=== PATIENT | male | born 1950 | race Caucasian/White ===

== ENCOUNTER → 2023-02-22 08:30 | Outpatient (BNVA) | payer MEDICARE, SELFPAY | PROVIDERS: Visit Provider Family Medicine | DX: M19.90 Unspecified osteoarthritis, unspecified site (principal) | CPT/HCPCS: 73130; 80053; 85651; 86140; 86200; 86431 ==

== ENCOUNTER → 2023-02-22 10:14 | Outpatient (BNVA) | payer MEDICARE, SELFPAY | PROVIDERS: Visit Provider Family Medicine | DX: M19.90 Unspecified osteoarthritis, unspecified site (principal) | CPT/HCPCS: 73130 ==

== ENCOUNTER 2023-03-07 07:14 | Outpatient (CLI) | payer MEDICARE, SELFPAY ==
--- NOTE | 2023-03-07 07:15 | USCV_ITS ---
Jerord Valentine Age: 73 Gender: M : 1950 Exam Date: 03/07/2023 07:35 Ordering Phys: Taras Cohen MD Technologist: Exam Location: [facility] [place]_ Indication: lt leg swelling PROCEDURES: The venous duplex Doppler examination of both lower extremities was performed in the standard fashion. The following venous structures were evaluated: common femoral vein, profunda vein, proximal portion of the greater saphenous vein, superficial femoral vein, and the popliteal vein. In addition, the posterior tibial and peroneal trunk were evaluated. FINDINGS: Normal 2-D Doppler and augmentation and compressibility throughout the lower extremity venous structures. Additional imaging through the proximal calf veins also reveals no thrombus. Limited evaluation of the greater saphenous vein is patent with no thrombus. CONCLUSIONS No DVT bilateral lower extremities. Dr. Mikki Garrido DO (Electronically Signed) Final Date: 07 March 2023 08:31 S
== END 2023-03-07 07:15 | disposition home or self-care (01) ==
PROVIDERS: PCP Family Medicine; Visit Provider Family Medicine
DX: R60.0 Localized edema (principal)
CPT/HCPCS: 80053; 85651; 86140; 86200; 86431; 93970

== ENCOUNTER → 2023-05-30 10:10 | Outpatient (BNVA) | payer MEDICARE, SELFPAY | PROVIDERS: PCP Family Medicine; Visit Provider Family Medicine | DX: R60.0 Localized edema (principal) | CPT/HCPCS: 80053 ==

== ENCOUNTER 2023-06-12 07:43 | Outpatient (CLI) | payer MEDICARE, SELFPAY ==
--- NOTE | 2023-06-12 08:00 | USCV_ITS ---
Jerrod Valentine Age: 73 Gender: M : 1950 Exam Date: 06/12/2023 08:02 Ordering Phys: Technologist: Exam Location[place] [facility] [place] Indication: pedal edema afib BP: 130 / 74 HR: Rhythm: Sinus Technical Quality: Adequate MEASUREMENTS (Male / Female) Normal Values 2D ECHO LV Diastolic Diameter PLAX 4.5 cm 4.2 - 5.9 / 3.9 - 5.3 cm LV Systolic Diameter PLAX 3.3 cm IVS Diastolic Thickness 1.2 cm 0.6 - 1.0 / 0.6 - 0.9 cm IVS Systolic Thickness 2.0 cm LVPW Diastolic Thickness 1.3 cm 0.6 - 1.0 / 0.6 - 0.9 cm LVPW Systolic Thickness 1.7 cm LVOT Diameter 2.0 cm LV Ejection Fraction 2D Teich 51.9 % LV Ejection Fraction MOD 2C 69.0 % LV Ejection Fraction 2C AL 69.7 % LA Diameter 4.5 cm IVC Diameter 2.6 cm M-MODE Aortic Annulus Diameter 4.0 cm LA Ao Ratio MM 1.1 MV E Point Septal Separation 0.6 cm DOPPLER LVOT Peak Velocity 86.0 cm/s MV Area PHT 5.0 cm squared Mitral E to A Ratio 2.8 MV E' Velocity 139.0 cm/s TR Peak Velocity 312.7 cm/s TR Peak Gradient 39.1 mmHg RV Acceleration Time 0.1 s FINDINGS Left Ventricle Normal left ventricular cavity size. Mild left ventricular hypertrophy. Normal left ventricular systolic function. Left ventricular ejection fraction is estimated at 62 %. Grade II diastolic dysfunction. Right Ventricle Mildly dilated RV with good RV systolic function. Right Atrium Dilated right atrium. Left Atrium Mildly increased left atrial size. Mitral Valve Mildly thickened mitral valve. Mild mitral annular calcification. Mild-moderate mitral valve regurgitation. Aortic Valve Thickened aortic valve. Aortic valve sclerosis. Trace aortic regurgitation. No aortic stenosis. Tricuspid Valve Structurally normal tricuspid valve. Mild tricuspid valve regurgitation with elevated right heart and pulmonary pressure. Estimated pulmonary pressure 45 to 50 mmHg. Pulmonic Valve Pulmonic valve not well visualized. Pericardium No pericardial effusion. Aorta Normal aorta size at the level of the sinus of valsalva. IVC Dilated IVC with normal respiratory variation. CONCLUSIONS 1. Mild concentric LVH. Normal LV systolic function with LVEF of 62%. 2. Mild to moderate mitral regurgitation. 3. Mild tricuspid regurgitation with elevated right heart and pulmonary pressures. Moderate pulmonary hypertension with a PA pressure 45 to 50 mmHg. Nargis Santiago MD (Electronically Signed) Final Date: 12 June 2023 16:25 S
== END 2023-06-12 07:44 | disposition home or self-care (01) ==
LOC: RAD 07:43
PROVIDERS: PCP Family Medicine; Visit Provider Family Medicine
DX: R60.0 Localized edema (principal); I48.91 Unspecified atrial fibrillation; I08.1 Rheumatic disorders of both mitral and tricuspid valves; I27.20 Pulmonary hypertension, unspecified
CPT/HCPCS: 93306

== ENCOUNTER → 2023-07-03 11:16 | Outpatient (BNVA) | payer MEDICARE, SELFPAY | PROVIDERS: PCP Family Medicine; Visit Provider Family Medicine | DX: R60.0 Localized edema (principal) | CPT/HCPCS: 80053 ==

== ENCOUNTER → 2023-09-13 13:14 | Outpatient (BNVA) | payer MEDICARE, SELFPAY | PROVIDERS: PCP Family Medicine; Referring Provider Family Medicine; Visit Provider Dermatology | DX: B07.8 Other viral warts (principal); D48.5 Neoplasm of uncertain behavior of skin; L57.0 Actinic keratosis; L82.0 Inflamed seborrheic keratosis; L82.1 Other seborrheic keratosis; D22.5 Melanocytic nevi of trunk; L73.8 Other specified follicular disorders; Z85.828 Personal history of other malignant neoplasm of skin | CPT/HCPCS: 11102; 17000; 17110; 69100; 99203 ==

== ENCOUNTER → 2023-09-29 08:27 | Outpatient (BNVA) | payer MEDICARE, SELFPAY | PROVIDERS: PCP Family Medicine; Visit Provider Family Medicine | DX: R60.0 Localized edema (principal) | CPT/HCPCS: 80053 ==

== ENCOUNTER → 2023-11-20 08:02 | Outpatient (BNVA) | payer MEDICARE, SELFPAY | PROVIDERS: PCP Family Medicine; Visit Provider Family Medicine | DX: I10 Essential (primary) hypertension (principal) | CPT/HCPCS: 80053 ==

== ENCOUNTER 2023-11-22 13:54 | Emergency (ER) | payer MEDICARE, SELFPAY ==
[2023-11-22 13:56] VITALS: BP 142/86; PULSE 77; RESP 18; TEMP 36.8; O2SAT 98; BMI 40.1
--- NOTE | 2023-11-22 13:59 | CTR_ITS ---
PROCEDURE INFORMATION: Exam: CT Cervical Spine Without Contrast Exam date and time: 11/22/2023 2:43 PM Age: 73 years old Clinical indication: Injury or trauma; Fall; Blunt trauma; Additional info: Fall, neck pain TECHNIQUE: Imaging protocol: Computed tomography of the cervical spine without contrast. Radiation optimization: All CT scans at this facility use at least one of these dose optimization techniques: automated exposure control; mA and/or kV adjustment per patient size (includes targeted exams where dose is matched to clinical indication); or iterative reconstruction. COMPARISON: CT head wo con* [id number] 11/22/2023 2:43 PM RADIATION DOSE METRICS: Total DLP (mGy-cm): 318.4 FINDINGS: Bones/joints: Nondisplaced type 2 odontoid fracture is identified. Moderate to severe disc space narrowing at C5-C6 C2-C3: No significant disc bulge or herniation. No severe spinal canal stenosis. No significant neural foraminal narrowing. C3-C4: Broad-based disc osteophyte complex with mild central canal stenosis. Moderate bilateral neuroforaminal narrowing secondary to uncovertebral and facet hypertrophy. C4-C5: Broad-based disc osteophyte complex with mild central canal stenosis. Mild right neuroforaminal narrowing secondary to uncovertebral and facet hypertrophy. C5-C6: Broad-based disc osteophyte complex with mild central canal stenosis. Moderate bilateral neuroforaminal narrowing secondary to uncovertebral and facet hypertrophy. C6-C7: Spinal canal is patent. Mild bilateral neuroforaminal narrowing secondary to uncovertebral and facet hypertrophy. C7-T1: No significant disc bulge or herniation. No severe spinal canal stenosis. No significant neural foraminal narrowing. Lungs: Lung apices are normal. Soft tissues: Bilateral carotid bulb calcifications CT/CT cervical spin wo con* [id number] IMPRESSION: 1. Nondisplaced type 2 odontoid fracture. Recommend neurosurgical/orthopedic spine consultation. If symptoms persist, consider further evaluation with MRI, if MRI is clinically safe to obtain. 2. Multilevel degenerative changes of the cervical spine as outlined above.
--- NOTE | 2023-11-22 13:59 | CTR_ITS ---
PROCEDURE INFORMATION: Exam: CT Thoracic Spine Without Contrast Exam date and time: 11/22/2023 2:50 PM Age: 73 years old Clinical indication: Pain and injury or trauma; Fall; Blunt trauma (contusions or hematomas); Pain in thoracic spine; Additional info: Traumatic upper back pain TECHNIQUE: Imaging protocol: Computed tomography of the thoracic spine without contrast. Radiation optimization: All CT scans at this facility use at least one of these dose optimization techniques: automated exposure control; mA and/or kV adjustment per patient size (includes targeted exams where dose is matched to clinical indication); or iterative reconstruction. COMPARISON: CT chest wo con [id number] 11/22/2023 2:50 PM RADIATION DOSE METRICS: Total DLP (mGy-cm): 1408.2 FINDINGS: Bones/joints: The bony structures demonstrate diffuse osteopenia. There are acute comminuted, nondisplaced fractures involving the T4 vertebral body. Some of the fracture lines are longitudinal and some are horizontal. The fractures do not involve the posterior elements. No other acute bony abnormality noted. The spinal canal is intact.Vertebral body spurring can be seen at multiple levels. Soft tissues: Unremarkable. CT/CT thoracic spin wo con* [id number] IMPRESSION: Acute T4 vertebral body fractures with osteoporosis
--- NOTE | 2023-11-22 13:59 | CTR_ITS ---
PROCEDURE INFORMATION: Exam: CT Chest Without Contrast; Diagnostic Exam date and time: 11/22/2023 2:50 PM Age: 73 years old Clinical indication: Injury or trauma; Fall; Blunt trauma (contusions or hematomas); Additional info: Traumatic chest pain TECHNIQUE: Imaging protocol: Diagnostic computed tomography of the chest without contrast. Radiation optimization: All CT scans at this facility use at least one of these dose optimization techniques: automated exposure control; mA and/or kV adjustment per patient size (includes targeted exams where dose is matched to clinical indication); or iterative reconstruction. COMPARISON: CT thoracic spin wo con* [id number] 11/22/2023 2:50 PM RADIATION DOSE METRICS: Total DLP (mGy-cm): 735.6 FINDINGS: Lungs: Nonspecific 0.6 cm right middle lobe lung nodule best seen on series 4 image 37. There is a 0.7 cm calcified granuloma right middle lobe best seen on image 42. No focal lung consolidation. Pleural spaces: No pneumothorax. No pleural effusion. Heart: No cardiomegaly. No pericardial effusion. Coronary arteries: Coronary artery calcifications. Mediastinal space: The visualized trachea and esophagus are unremarkable in appearance. Lymph nodes: No mediastinal lymphadenopathy. Evaluation of the charity limited without the use of IV contrast. No axillary lymphadenopathy. Vasculature: No thoracic aortic aneurysm. Bones/joints: Redemonstration of T4 fracture involving the anterior and middle columns. Recommend surgical consultation. Soft tissues: Subcutaneous soft tissues are unremarkable. CT/CT chest wo con [id number] IMPRESSION: 1. Redemonstration of T4 fracture involving the anterior and middle columns. Recommend surgical consultation. 2. Nonspecific right middle lobe lung nodule. Recommend comparison to prior CT scans of the chest if available. Otherwise, Fleischner society recommendations: For patients at low risk (minimal or absent history of smoking and of other known risk factors), recommend CT Chest at 6-12 months, then consider CT Chest at 18-24 months. For patients at high risk (history of smoking or of other known risk factors), recommend CT Chest at 6-12 months, then CT Chest at 18-24 months. (Reference: Tutu) REFERENCES: Tutu Garduno et al. Guidelines for Management of Incidental Pulmonary Nodules Detected on CT Images: From the Fleischner Society 2017. Radiology. 2017;284(1):228-243.
--- NOTE | 2023-11-22 13:59 | CTR_ITS ---
PROCEDURE INFORMATION: Exam: CT Head Without Contrast Exam date and time: 11/22/2023 2:43 PM Age: 73 years old Clinical indication: Injury or trauma; Fall; Blunt trauma (contusions or hematomas); Additional info: Fall, head injury TECHNIQUE: Imaging protocol: Computed tomography of the head without contrast. Radiation optimization: All CT scans at this facility use at least one of these dose optimization techniques: automated exposure control; mA and/or kV adjustment per patient size (includes targeted exams where dose is matched to clinical indication); or iterative reconstruction. COMPARISON: CT cervical spin wo con* [id number] 11/22/2023 2:43 PM RADIATION DOSE METRICS: Total DLP (mGy-cm): 1631 FINDINGS: Brain: Mild nonspecific white matter low attenuation which may be related to microvascular ischemic changes. No acute confluent lobar ischemic infarct. No acute intracranial hemorrhage. Cerebral ventricles: The ventricles and sulci are normal in size and shape for the patient's stated age. Paranasal sinuses: Visualized sinuses are unremarkable. No fluid levels. Mastoid air cells: Visualized mastoid air cells are well aerated. Bones: Unremarkable. No acute fracture. Soft tissues: Visualized soft tissues are unremarkable. CT/CT head wo con* [id number] IMPRESSION: No acute intracranial abnormality. If symptoms persist, consider further evaluation with MRI, if MRI is clinically safe to obtain.
--- NOTE | 2023-11-22 13:59 | XR_ITS ---
WS: [id number] XR hip RT 2-3V wo/w pel* [id number] REASON FOR EXAM: hip pain FINDINGS: No fracture or focal bone lesion. Significant narrowing of the hip joint space with near [id number] articulation in the superior aspe ct of the joint. Significant subchondral sclerosis and osteophytosis of the acetabulum. Moderate oste ophytosis of the femoral head. XR/XR hip RT 2-3V wo/w pel* [id number] IMPRESSION: Moderate to severe osteoarthritis of the right hip.
--- NOTE | 2023-11-22 13:59 | ECG_ITS ---
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 Measurements Intervals [place] Rate: 72 P: 0 AL: 0 QRS: 196 QRSD: 114 T: 31 QT: 400 QTc: 438 Interpretive Statements ATRIAL FIBRILLATION INDETERMINATE AXIS MODERATE INTRAVENTRICULAR CONDUCTION DELAY [110+ ms QRS DURATION] No previous ECG available for comparison Electronically Signed On 11-22-2023 16:48:38 CDT by Fermin Michelle M.D. [id number] f
[2023-11-22 14:15] LABS: Alveolar-Arterial Oxygen Gradi 3.2 mmHg (5-10); Base Excess ABG 11.7 mmol/L (-2.0-2.0); Blood Gas Allen Test Pos; Blood Gas Operator Identificat CAK; Blood Gas Sample Site Radial, left; Blood Gas Sample Type Arterial; Carboxyhemoglobin 0.5 %THgb (0.4-20.1); HCO3 ABG 33.6 mmol/L (22-26); HGB O2 Sat 96.6 % (95-100); Ionized Calcium Level - ABG 1.2 mmol/L (1.1-1.4); Methemoglobin < 0.0 % (0.4-1.5); Oxygen Device ROOM AIR; Oxygen Saturation ABG 96.9; PO2 ABG 81.7 mmHg (80.0-100.0); PO2 FiO2 Ratio Arterial Blood 0; Potassium Level - ABG 2.7 mmol/L (3.5-5.0); Total Hemoglobin 16.6 g/dL (14-18)
[2023-11-22 14:21] LABS: Basophils # 0.1 10^3/uL (0.0-0.1); Basophils % 0.6 %; Eosinophils # 0.1 10^3/uL (0.0-0.8); Eosinophils % 1.1 %; Hematocrit 48.3 % (37-53); Lymphocytes # 1.6 10^3/uL (0.8-4.8); Lymphocytes % 15.6 %; Mean Corpuscular HGB Conc 34.8 g/dL (30-55); Mean Corpuscular Hemoglobin 29.9 pg (27-33); Mean Corpuscular Volume 85.9 fl (82-101); Monocytes # 0.8 10^3/uL (0.2-0.9); Monocytes % 7.1 %; Neutrophils # 7.88 10^3/uL (1.8-7.7); Neutrophils % 74.8 %; Nucleated Red Blood Cells % 0 %; Platelet Count 288 10^3/cmm (157-399); Red Blood Count 5.62 10^6/uL (3.85-5.65); Red Cell Distribution Width 12.3 % (12.1-15.1); White Blood Count 10.53 10^3/uL (3.29-11.43)
--- NOTE | 2023-11-22 14:27 | PC.PHAR ---
Addendum entered by Megan Richardson 11/22/23 14:29: CORRECTION: PT NO LONGER TAKES BUMETANIDE 2 MG ONLY! Original Note: PT STATES NO LONGER TAKES CHLORTHALIDONE 25MG OR BUMETANIDE 2MG. 11/22/23
[2023-11-22 14:33] LABS: INR 1.18 (0.8-1.2); Partial Thromboplastin Time 29.8 SECONDS (23.9-36.7)
--- NOTE | 2023-11-22 14:33 | CTR_ITS ---
PROCEDURE INFORMATION: Exam: CT Right Lower Extremity Without Contrast, Hip Exam date and time: 11/22/2023 2:50 PM Age: 73 years old Clinical indication: Injury or trauma; Fall; Blunt trauma; Hip; Right; Additional info: Inconclusive xray TECHNIQUE: Imaging protocol: CT of the right lower extremity without contrast was performed. Exam focused on the hip. Radiation optimization: All CT scans at this facility use at least one of these dose optimization techniques: automated exposure control; mA and/or kV adjustment per patient size (includes targeted exams where dose is matched to clinical indication); or iterative reconstruction. COMPARISON: CR XR hip RT 2-3V wo/w pel* [id number] 11/22/2023 2:03 PM RADIATION DOSE METRICS: Total DLP (mGy-cm): 1009.2 FINDINGS: Bones/joints: Degenerative changes are noted involving the right hip with narrowing of the superior joint space with adjacent sclerosis and osteophytosis. No acute fracture or dislocation. Soft tissues: Normal. CT/CT hip RT wo con* [id number] IMPRESSION: No acute bony abnormality. If symptoms persist, consider repeat imaging in 5-7 days. If there is clinical concern for occult fracture, then consider further evaluation with MRI
--- NOTE | 2023-11-22 14:38 | W.ED.FALL ---
HPI - Fall General: Chief Complaint: Fall Stated Complaint: FALL Time Seen by Provider: 11/22/23 13:56 History of Present Illness: 73-year-old man with a history of A-fib on eliqis, hypertension, hyperlipidemia, aortic valve stenosis, chronic venous stasis and asthma who presents the emergency room after having several falls. He says he has been blacking out when he stands up and will wake up on the ground and not know how long he has been down. He says he is just felt generally weak. Nothing focal. Today after the fall he is having severe pain in his neck and upper back. And some head pain. He says it feels numb in the back of his head. He has no altered mental status and no focal motor deficits. No saddle numbness. No loss of bowel or bladder. He has pretty severe venous stasis and has venous stasis dermatitis of both legs. His doctor was trying him on different diuretics. Apparently recently they started on chlorthalidone. No fevers. No loss of vision. No slurred speech. He has some pain in his right rib area. No increased work of breathing however. No abdominal pain. He is complaining of pain in his right hip as well. Review of Systems Narrative: Constitutional symptoms: Negative except as documented in HPI. Skin symptoms: Negative except as documented in HPI. Eye symptoms: Negative except as documented in HPI. ENMT symptoms: Negative except as documented in HPI. Respiratory symptoms: Negative except as documented in HPI. Cardiovascular symptoms: Negative except as documented in HPI. Gastrointestinal symptoms: Negative except as documented in HPI. Genitourinary symptoms: Negative except as documented in HPI. Musculoskeletal symptoms: Negative except as documented in HPI. Neurologic symptoms: Negative except as documented in HPI. Psychiatric symptoms: Negative except as documented in HPI. Endocrine symptoms: Negative except as documented in HPI. PFSH ED PFSH: Medical History Aortic valve sclerosis Bilateral lower extremity edema Carotid stenosis Chronic anticoagulation Chronic atrial fibrillation Chronic venous insufficiency Gout History of skin cancer Hypercholesterolemia Hypertriglyceridemia, essential HTN (hypertension) with goal to be determined Prediabetes Asthma Normal colonoscopy Family History Father Asthma Cancer Heart disease Stroke Mother Asthma Heart disease Varicose veins of calf Social History Smoking and tobacco/nicotine status: never used tobacco/nicotine Quit status (tobacco/nicotine): has quit using Second hand smoke exposure: No Alcohol intake: never Substance/Drug Use: never Physical Exam Narrative: EXAM NARRATIVE: General: Alert, no acute distress. Skin: Warm, dry. Patient has some bruising over the left proximal forearm. No bony tenderness. This appears just to be a bruise. Head: Normocephalic, atraumatic. Neck: Patient is complaining of pain in his upper neck. He has on a cervical collar. Eye: Extraocular movements are intact. Ears, nose, mouth and throat: Dry oral mucosa Cardiovascular: Regular, Normal peripheral perfusion. Respiratory: Lungs are clear to auscultation, respirations are non-labored, breath sounds are equal, Symmetrical chest wall expansion. Gastrointestinal: Soft, Nontender, Non distended, Normal bowel sounds. Musculoskeletal: No obvious deformity. He has a bruise on his left elbow. He has pain in his hip on the right side whenever he lifts his leg. No shortening or rotation. He is neurovascularly intact. Back: Patient has tenderness palpation in his mid cervical area there is some bony tenderness. Neurological: Alert and oriented, No focal neurological deficit observed. Psychiatric: Cooperative, appropriate mood & affect. Course Vital Signs: Vital signs: Vital Signs Temperature 98.2 F 11/22/23 13:56 Pulse Rate 77 11/22/23 13:56 Respiratory Rate 18 11/22/23 13:56 Blood Pressure 137/83 11/22/23 15:48 Pulse Oximetry 93 11/22/23 15:48 Oxygen Delivery Me thod Room Air 11/22/23 13:56 MDM - Fall Medical Decision Making Medical decision making: Differential diagnosis including but not limited to and based on the above HPI, review of systems and physical exam: In this patient with syncope cardiac markers, EKG, renal function, hemoglobin etc. were ordered. Concern for renal failure. Anemia. Cardiac syncope. In this trauma patient I have ordered CT of the head and neck. He is having neck pain. I be concerned about a cervical fracture. He is having upper back pain concern for thoracic vertebral fractures. He is having pain in his right ribs so a CT of his chest was ordered. Rule out pneumothorax and rib fractures and pulmonary contusions. An x-ray of his hip and pelvis were ordered secondary to pain there. He is having no abdominal pain. Orders placed to evaluate differential diagnosis based on the above differential, HPI and physical exam Lab Review: Laboratory results were reviewed and interpreted by myself the emergency room physician. White count is 10.5. Hemoglobin is 16.8. Patient has some acute renal insufficiency with a BUN and creatinine of 50 and 1.4. X-ray of the hip and pelvis was done. No pelvic fractures but had some concern for a right hip fracture as patient had quite a bit of pain. A CT was ordered. CT head: No acute intracranial process. no intracranial hemorrhage, no evidence of infarct. no evidence of acute fracture.This was reviewed and interpreted by myself the ER physician. CT of the cervical spine: Type II dens fracture. Nondisplaced. Good alignment. No step-offs. This was reviewed and interpreted by myself the emergency room physician. I also reviewed the radiologist report. CT of the chest without contrast: T4 fracture involving the anterior middle columns. Right middle lobe lung nodule. CT of the right hip without contrast: There is no obvious acute fractures. All films were reviewed and interpreted by myself the emergency room physician. I also discussed findings with radiologist on-call. EKG: Time 1358 rate 72 atrial fibrillation with controlled rate, No ST-T changes, no ectopy, This was reviewed and interpreted by myself the ER physician at 1403. Repeat EKG: Time 1604 rate 76 atrial fibrillation with controlled rate, No ST-T changes, no ectopy, This was reviewed and interpreted by myself the ER physician at 1606. I reviewed the patient's medical record. Reexamination: Patient has no altered mental status. No focal motor deficits. He has full range of motion of his legs and hands. He is complaining of some tingling in the back of his head and burning in the back of his head. He still has neck and back pain. No increased work of breathing. Assessment T4 vertebral body fracture Type II dens fracture Pulmonary nodule Acute renal insufficiency Hip contusion Chronic anticoagulation Head injury Atrial fibrillation Syncope Rib contusion Plan: T4 vertebral body fracture - bedrest. flat. -IV Dilaudid and IV Zofran for pain Type II dens fracture -[place] J collar is being placed. By physical therapy. Pulmonary nodule -Patient will need repeat imaging in 3 to 6 months. Acute renal insufficiency -IV fluids are being given. Hip contusion -No evidence of fracture on x-ray or CT scan. -If he keeps having pain this may need repeat films or an MRI. Chronic anticoagulation -Secondary to atrial fibrillation. Currently with no signs of bleeding on workup. Head injury -CT of the head is negative for intracranial hemorrhage or skull fractures. Atrial fibrillation -Currently rate controlled. No signs of acute coronary syndrome or elevated troponin. No ST elevation. Syncope -Most likely this is orthostatic related to volume depletion and renal failure from diuresis. Rib contusion -CT of the chest shows no rib fractures or pneumothorax. Disposition: -Patient has an unstable cervical fracture and an unstable thoracic vertebral body fracture. He requires transfer to a tertiary care center. -Patient accepted ER to ER at [facility] by Dr. Quiros in the emergency room - Discussed findings and plan with patient and his son. Answered any questions. - All laboratory values were reviewed and interpreted personally by myself, the ER physician - All imaging was reviewed and interpreted personally by myself, the ER physician. - Evaluation and treatment of this problem were appropriate in the emergency setting Critical care: -I spent a total of >75 minutes of critical care time managing the patient, independent of any other practitioner. -The time involved in the performance of separately reportable procedures was not counted towards critical care time. Lab Data 11/22/23 13:38 11/22/23 13:38 Radiology Impressions Cervical Spine CT 11/22/23 13:59 IMPRESSION: 1. Nondisplaced type 2 odontoid fracture. Recommend neurosurgical/orthopedic spine consultation. If symptoms persist, consider further evaluation with MRI, if MRI is clinically safe to obtain. 2. Multilevel degenerative changes of the cervical spine as outlined above. ADDENDUM: 11/22/23 1516 ADDENDUM: COMMENT: THIS REPORT CONTAINS FINDINGS THAT MAY BE CRITICAL TO PATIENT CARE. The exam findings were verbally communicated by me to KENROY STOCK via telephone conference at 3:15 PM CDT on 11/22/2023. The findings were acknowledged and understood. Chest CT 11/22/23 13:59 IMPRESSION: 1. Redemonstration of T4 fracture involving the anterior and middle columns. Recommend surgical consultation. 2. Nonspecific right middle lobe lung nodule. Recommend comparison to prior CT scans of the chest if available. Otherwise, Fleischner society recommendations: For patients at low risk (minimal or absent history of smoking and of other known risk factors), recommend CT Chest at 6-12 months, then consider CT Chest at 18-24 months. For patients at high risk (history of smoking or of other known risk factors), recommend CT Chest at 6-12 months, then CT Chest at 18-24 months. (Reference: Tutu) REFERENCES: Tutu Garduno, et al. Guidelines for Management of Incidental Pulmonary Nodules Detected on CT Images: From the Fleischner Society 2017. Radiology. 2017;284(1):228-243. ADDENDUM: 11/22/23 1531 ADDENDUM: COMMENT: THIS REPORT CONTAINS FINDINGS THAT MAY BE CRITICAL TO PATIENT CARE. The exam findings were verbally communicated by me to KENROY STOCK via telephone conference at 3:33 PM CDT on 11/22/2023. The findings were acknowledged and understood. Head CT 11/22/23 13:59 IMPRESSION: No acute intracranial abnormality. If symptoms persist, consider further evaluation with MRI, if MRI is clinically safe to obtain. Hip/Pelvis X-Ray 11/22/23 13:59 IMPRESSION: Moderate to severe osteoarthritis of the right hip. Thoracic Spine CT 11/22/23 13:59 IMPRESSION: Acute T4 vertebral body fractures with osteoporosis Hip CT 11/22/23 14:33 IMPRESSION: No acute bony abnormality. If symptoms persist, consider repeat imaging in 5-7 days. If there is clinical concern for occult fracture, then consider further evaluation with MRI Laboratory Results WBC 10.53 10^3/uL (3.29-11.43) 11/22/23 13:38 RBC 5.62 10^6/uL (3.85-5.65) 11/22/23 13:38 Hgb 16.80 g/dL (11.27-16.99) 11/22/23 13:38 Hct 48.3 % (37-53) 11/22/23 13:38 MCV 85.9 fl (82-101) 11/22/23 13:38 MCH 29.9 pg (27-33) 11/22/23 13:38 MCHC 34.8 g/dL (30-55) 11/22/23 13:38 RDW 12.3 % (12.1-15.1) 11/22/23 13:38 Plt Count 288 10^3/cmm (157-399) 11/22/23 13:38 MPV 11.0 fL (7.4-10.4) H 11/22/23 13:38 Neut % (Auto) 74.8 % 11/22/23 13:38 Lymph % (Auto) 15.6 % 11/22/23 13:38 [place] % (Auto) 7.1 % 11/22/23 13:38 Eos % (Auto) 1.1 % 11/22/23 13:38 Baso % (Auto) 0.6 % 11/22/23 13:38 Neut # (Auto) 7.88 10^3/uL (1.8-7.7) H 11/22/23 13:38 Lymph # (Auto) 1.6 10^3/uL (0.8-4.8) 11/22/23 13:38 [place] # (Auto) 0.8 10^3/uL (0.2-0.9) 11/22/23 13:38 Eos # (Auto) 0.1 10^3/uL (0.0-0.8) 11/22/23 13:38 Baso # (Auto) 0.1 10^3/uL (0.0-0.1) 11/22/23 13:38 Nucleated RBC % (auto) 0 % 11/22/23 13:38 Nucleated RBCs # 0.0 /100WBC 11/22/23 13:38 PT 15.40 SECONDS (12.1-14.9) H 11/22/23 13:38 INR 1.18 (0.8-1.2) 11/22/23 13:38 APTT 29.8 SECONDS (23.9-36.7) 11/22/23 13:38 Specimen Type Arterial 11/22/23 14:03 Sample Site Radial, left 11/22/23 14:03 ABG pH 7.60 (7.35-7.45) H* 11/22/23 14:03 ABG pCO2 34.0 mmHg (35-45) L 11/22/23 14:03 ABG pO2 81.7 mmHg (80.0-100.0) 11/22/23 14:03 ABG PO2/FiO2 Ratio 0 11/22/23 14:03 ABG HCO3 33.6 mmol/L (22-26) H 11/22/23 14:03 ABG O2 Saturation 96.9 11/22/23 14:03 ABG Base Excess 11.7 mmol/L (-2.0-2.0) H 11/22/23 14:03 Julian Test Pos 11/22/23 14:03 A-a O2 Gradient 3.2 mmHg (5-10) L 11/22/23 14:03 Hematocrit 51.0 % (42-52) 11/22/23 14:03 Hgb O2 Saturation 96.6 % (95-100) 11/22/23 14:03 Carboxyhemoglobin 0.5 %THgb (0.4-20.1) 11/22/23 14:03 Methemoglobin < 0.0 % (0.4-1.5) L 11/22/23 14:03 Total Hemoglobin 16.6 g/dL (14-18) 11/22/23 14:03 Sodium 141.0 mmol/L (131-143) 11/22/23 14:03 Potassium 2.7 mmol/L (3.5-5.0) L 11/22/23 14:03 Glucose 134.0 mg/dL (70-115) H 11/22/23 14:03 Ionized Calcium 1.2 mmol/L (1.1-1.4) 11/22/23 14:03 O2 Delivery Device Room air 11/22/23 14:03 FiO2 21.0 % 11/22/23 14:03 [place] [employer] Supervisor ID Cak 11/22/23 14:03 Sodium 140 mmol/L (136-145) 11/22/23 13:38 Potassium 3.1 mmol/L (3.5-5.1) L 11/22/23 13:38 Chloride 89 mmol/L (98-107) L 11/22/23 13:38 Carbon Dioxide 34 mmol/L (22-29) H 11/22/23 13:38 Anion Gap 20.1 (5-19) H 11/22/23 13:38 BUN 50 mg/dL (8-23) H 11/22/23 13:38 Creatinine 1.4 mg/dL (0.7-1.2) H 11/22/23 13:38 GFR Calculation Not Reportable 11/22/23 13:38 Glucose 138 mg/dL (65-115) H 11/22/23 13:38 Calculated Osmolality 306 mOsm/kg (285-295) H 11/22/23 13:38 Lactic Acid 2.4 mmol/L (0.5-2.2) H 11/22/23 14:30 Calcium 11.3 mg/dL (8.5-10.5) H 11/22/23 13:38 Magnesium 2.4 mg/dL (1.7-2.3) H 11/22/23 13:38 Total Bilirubin 0.7 mg/dL (0.15-1.2) 11/22/23 13:38 AST 21 U/L (0-40) 11/22/23 13:38 ALT 22 U/L (0-41) 11/22/23 13:38 Alkaline Phosphatase 80 U/L (40-130) 11/22/23 13:38 Ammonia 21 umol/L (16-60) 11/22/23 14:30 Troponin T Baseline 17 ng/L (0-15) H 11/22/23 13:38 Troponin T 120 Minute 20.61 ng/L (0-15) H 11/22/23 15:34 Delta Troponin T 3.61 ABS# (0-10) 11/22/23 15:34 C-Reactive Protein 9.4 mg/L (0.0-4.9) H 11/22/23 13:38 NT-Pro-B Natriuret Pep 1343 pg/mL (0-125) H 11/22/23 13:38 Total Protein 8.6 g/dL (6.6-8.7) 11/22/23 13:38 Albumin 4.9 g/dL (3.5-5.2) 11/22/23 13:38 Globulin 3.7 g/dL (1.3-4.6) 11/22/23 13:38 Amorphous Sediment Not Reportable 11/22/23 15:51 Ethyl Alcohol < 10 mg/dL (0-10) 11/22/23 13:38 All radiology interpretation(s) finalized by discharge Discharge Plan Discharge Patient Disposition: Xfer Short-Term Hosp Clinical Impression: Nondisplaced type II dens fracture, Chronic atrial fibrillation, Chronic anticoagulation, Syncope, T4 vertebral fracture, Acute renal failure, Hip injury, Rib contusion, Head injury, Pulmonary nodule Condition: Stable Referrals: Taras Cohen MD [Primary Care Provider] - Coding Level of Care Code ED [employer] Manager for Jossie Garcia
[2023-11-22 14:51] LABS: Troponin(5th) Baseline 17 ng/L (0-15)
[2023-11-22 14:58] LABS: Ammonia 21 umol/L (16-60)
[2023-11-22 14:59] LABS: Lactic Sepsis W/Reflex 2.4 mmol/L (0.5-2.2)
[2023-11-22 15:00] LABS: Alanine Aminotransferase 22 U/L (0-41); Albumin Level 4.9 g/dL (3.5-5.2); Alkaline Phosphatase 80 U/L (40-130); Anion Gap 20.1 (5-19); Aspartate Amino Transferase 21 U/L (0-40); Blood Urea Nitrogen 50 mg/dL (8-23); C Reactive Protein 9.4 mg/L (0.0-4.9); Calcium 11.3 mg/dL (8.5-10.5); Carbon Dioxide 34 mmol/L (22-29); Chloride 89 mmol/L (98-107); Globulin 3.7 g/dL (1.3-4.6); Glucose 138 mg/dL (65-115); Magnesium 2.4 mg/dL (1.7-2.3); NT Pro B Type Natriuretic Pept 1343 pg/mL (0-125); Osmolality Calculated 306 mOsm/kg (285-295); Potassium 3.1 mmol/L (3.5-5.1); Sodium 140 mmol/L (136-145); Total Bilirubin 0.7 mg/dL (0.15-1.2); Total Protein 8.6 g/dL (6.6-8.7)
[2023-11-22 15:02] LABS: Alcohol Level < 10 mg/dL (0-10); Creatinine Clr Calc Pharmacy 66.6959
[2023-11-22 15:48] VITALS: BP 137/83; O2SAT 93
--- NOTE | 2023-11-22 16:01 | PC.NURSE ---
Medications Delay: all meds ordered @3424 delayed d/t pt not listed in Pyxis, pharmacy contacted.
--- NOTE | 2023-11-22 16:04 | ECG_ITS ---
[facility] Test Date: 2023-11-22 Pat Name: Jerrod Valentine Department: Room: Gender: Male Chainer: : 1950 Requested By: Faith Whaley Order Number: [id number] Corcoran MD: Fermin Michelle M.D. Measurements Intervals [place] Rate: 76 P: 0 [place]: 0 QRS: -66 QRSD: 117 T: 30 QT: 404 QTc: 457 Interpretive Statements ATRIAL FIBRILLATION INDETERMINATE AXIS MODERATE INTRAVENTRICULAR CONDUCTION DELAY [110+ ms QRS DURATION] Compared to ECG 11/22/2023 13:58:57 No significant changes Electronically Signed On 11-22-2023 16:53:09 CDT by Fermin Michelle M.D. [email or web address]
[2023-11-22 16:05] LABS: Troponin 5 2HR 20.61 ng/L (0-15); Troponin 5 2HR Delta 3.61 ABS# (0-10)
[2023-11-22 16:21] LABS: Reflex Lactate Order REFLEX LACTIC ORDERD
[2023-11-22 16:34] LABS: Bilirubin Urine Neg (Negative); Blood Urine Neg (Negative); Glucose Urine UA Norm (Normal); Ketones Urine Negative (Negative); Leukocyte Esterase Urine Negative (Negative); Nitrate Urine Negative (Negative); Protein Urine Neg (Negative); Specific Gravity, Urine 1.005 (1.005-1.030); Urine Appearance Clear (CLEAR); Urine Color Yellow (Yellow); Urobilinogen Urine Norm (Negative); pH Urine 7 (5-7)
[2023-11-22 16:36] LABS: Add Urine Culture? No; Hyaline Casts Urine 0-4 /lpf; Mucus Urine TRACE /hpf; WBC Urine RARE /hpf (0-5)
[2023-11-22 16:45] VITALS: RESP 18; O2SAT 100
[2023-11-22] MEDS: HYDROmorphone 1 mg/mL INJ 1 mL IVP (16:45)
[2023-11-22] MEDS: ondansetron 2 mg/ML SDV 2 mL 4 MG IVP (16:45)
[2023-11-22] MEDS: sodium chloride 0.9% 1,000 ML 999 ML IV (16:45)
[2023-11-22 17:11] VITALS: PULSE 83; O2SAT 93
[2023-11-22 17:13] VITALS: RESP 18
--- NOTE | 2023-11-22 17:25 | PC.NURSE ---
report called to Mariah Whaley RN at [facility]. no further questions verbalized at end of report
--- NOTE | 2023-11-22 18:15 | PC.NURSE ---
report given to Kilo Metcalf. no further questions at end of report. pt left at approx 1820.
[2023-11-22 18:17] VITALS: BP 116/61; RESP 18; O2SAT 98
[2023-11-22 19:10] LABS: Lactic Acid level (Lactate) 1.9 mmol/L (0.5-2.2)
== END 2023-11-22 18:29 | disposition short-term general hospital (02) ==
PROVIDERS: Emergency Provider Emergency Medicine; PCP Family Medicine
DX: S12.112A Nondisplaced Type II dens fracture, initial encounter for closed fracture (principal); S22.049A Unspecified fracture of fourth thoracic vertebra, initial encounter for closed fracture; I48.20 Chronic atrial fibrillation, unspecified; Z79.01 Long term (current) use of anticoagulants; R55 Syncope and collapse; R91.1 Solitary pulmonary nodule; N17.9 Acute kidney failure, unspecified; S50.12XA Contusion of left forearm, initial encounter; S79.911A Unspecified injury of right hip, initial encounter; S09.90XA Unspecified injury of head, initial encounter; S20.211A Contusion of right front wall of thorax, initial encounter; W18.39XA Other fall on same level, initial encounter
CPT/HCPCS: 36415; 36600; 70450; 71250; 72125; 72128; 73502; 73700; 80051; 80053; 80307; 81001; 82140; 82330; 82805; 83605; 83735; 83880; 84484; 85025; 85610; 85730; 86140; 93005; 96374; 96375; 97760; 99285; J1170; J2405; J7030; L0172

== ENCOUNTER → 2023-12-07 15:01 | Outpatient (BNVA) | payer MEDICARE, SELFPAY | PROVIDERS: Visit Provider Orthopaedic Surgery | DX: S22.040A Wedge compression fracture of fourth thoracic vertebra, initial encounter for closed fracture (principal); S12.100A Unspecified displaced fracture of second cervical vertebra, initial encounter for closed fracture; S12.112A Nondisplaced Type II dens fracture, initial encounter for closed fracture; W19.XXXA Unspecified fall, initial encounter | CPT/HCPCS: 72040; 72072; 99204 ==

== ENCOUNTER → 2023-12-21 07:58 | Outpatient (BNVA) | payer MEDICARE, SELFPAY | PROVIDERS: PCP Family Medicine; Visit Provider Orthopaedic Surgery | DX: S12.112A Nondisplaced Type II dens fracture, initial encounter for closed fracture (principal); W18.39XA Other fall on same level, initial encounter | CPT/HCPCS: 72040; 72070; 99213 ==

== ENCOUNTER → 2024-01-10 08:28 | Outpatient (BNVA) | payer MEDICARE, SELFPAY | PROVIDERS: PCP Family Medicine; Visit Provider Family Medicine | DX: R73.03 Prediabetes (principal); R60.0 Localized edema; I10 Essential (primary) hypertension; I48.20 Chronic atrial fibrillation, unspecified; Z79.01 Long term (current) use of anticoagulants | CPT/HCPCS: 80053; 85025 ==

== ENCOUNTER → 2024-01-15 07:59 | Outpatient (BNVA) | payer MEDICARE, SELFPAY | PROVIDERS: PCP Family Medicine; Visit Provider Family Medicine | DX: R73.03 Prediabetes (principal) | CPT/HCPCS: 83036; 85025 ==

== ENCOUNTER → 2024-01-18 09:26 | Outpatient (BNVA) | payer MEDICARE, SELFPAY | PROVIDERS: PCP Family Medicine; Visit Provider Orthopaedic Surgery | DX: S12.112D Nondisplaced Type II dens fracture, subsequent encounter for fracture with routine healing (principal); X58.XXXD Exposure to other specified factors, subsequent encounter | CPT/HCPCS: 72040; 99213 ==

== ENCOUNTER → 2024-02-15 07:33 | Outpatient (BNVA) | payer MEDICARE, SELFPAY | PROVIDERS: PCP Family Medicine; Visit Provider Orthopaedic Surgery | DX: M47.892 Other spondylosis, cervical region (principal) | CPT/HCPCS: 72040; 99213 ==

== ENCOUNTER 2024-02-23 09:59 | Outpatient (RCR) | payer MEDICARE, SELFPAY | END 2024-03-23 23:59 | disposition home or self-care (01) | LOC: SPT 09:59 | PROVIDERS: PCP Family Medicine; Visit Provider Orthopaedic Surgery | DX: M54.2 Cervicalgia (principal); M54.9 Dorsalgia, unspecified; G89.29 Other chronic pain | CPT/HCPCS: 97110; 97162; G0283 ==

== ENCOUNTER 2024-03-24 06:44 | Outpatient (RCR) | payer MEDICARE, SELFPAY | END 2024-04-02 23:59 | disposition home or self-care (01) | LOC: SPT 06:44 | PROVIDERS: PCP Family Medicine; Visit Provider Orthopaedic Surgery | DX: M54.2 Cervicalgia (principal); M54.9 Dorsalgia, unspecified; G89.29 Other chronic pain | CPT/HCPCS: 97110; G0283 ==

== ENCOUNTER 2024-10-18 15:23 | Emergency (ER) | payer MEDICARE, SELFPAY ==
[2024-10-18 16:18] VITALS: BP 140/73; PULSE 57; RESP 22; TEMP 36.7; O2SAT 97; BMI 42.4
[2024-10-18 17:00] LABS: Basophils # 0.1 10^3/uL (0.0-0.1); Basophils % 0.6 %; Eosinophils # 0.4 10^3/uL (0.0-0.8); Eosinophils % 4.2 %; Hematocrit 44.8 % (37-53); Lymphocytes # 1.6 10^3/uL (0.8-4.8); Lymphocytes % 19.3 %; Mean Corpuscular HGB Conc 31.5 g/dL (30-55); Mean Corpuscular Hemoglobin 29.4 pg (27-33); Mean Corpuscular Volume 93.3 fl (82-101); Mean Platelet Volume 9.8 fL (7.4-10.4); Monocytes # 0.9 10^3/uL (0.2-0.9); Monocytes % 10.3 %; Neutrophils % 65.2 %; Nucleated Red Blood Cells % 0 %; Platelet Count 288 10^3/cmm (157-399); Red Cell Distribution Width 12.6 % (12.1-15.1); White Blood Count 8.43 10^3/uL (3.29-11.43)
[2024-10-18 17:16] LABS: Erythrocyte Sedimentation Rate 22 mm/hr (0-10)
[2024-10-18 17:21] LABS: Alanine Aminotransferase 14 U/L (0-41); Albumin Level 3.9 g/dL (3.5-5.2); Alkaline Phosphatase 57 U/L (40-130); Anion Gap 15.4 (5-19); Aspartate Amino Transferase 15 U/L (0-40); Blood Urea Nitrogen 20 mg/dL (8-23); C Reactive Protein 35.9 mg/L (0.0-4.9); Calcium 9.5 mg/dL (8.5-10.5); Carbon Dioxide 25 mmol/L (22-29); Chloride 102 mmol/L (98-107); Globulin 4.1 g/dL (1.3-4.6); Glucose 70 mg/dL (65-115); Osmolality Calculated 287 mOsm/kg (285-295); Potassium 4.4 mmol/L (3.5-5.1); Sodium 138 mmol/L (136-145); Total Bilirubin 0.3 mg/dL (0.15-1.2)
--- NOTE | 2024-10-18 17:31 | W.ED.EXTPRO ---
HPI - Extremity Problem General: Chief complaint: Extremity Problem,Nontraumatic Stated complaint: right wrist hand pain Time Seen by Provider: 10/18/24 17:30 History of Present Illness: 74-year-old male with prediabetes presents to the emergency department with complaint of right middle finger swelling. Patient has had swelling in his right second, third, and fourth MCPs intermittently for months. He reports he has osteoarthritis in this region. (I do not think he has been tested for any seropositive arthritis). He does not think the swelling in the MCPs is related. However, he has developed some swelling around his right wrist. His primary care doctor thought that they saw some erythema in the forearm and was concerned about infection in the finger and wrist. The patient reports no constitutional symptoms. He specifically denies any fever or chills. He does have a history of gout although he is never had it in his wrist. Patient states he has not been working with any plants and has not been poked by any thorns. No stings or bites that he is aware of. He does have a few hard small white dots on his second and fourth fingers of the right hand and another larger one on his left second finger. He states he believes these are warts as they have been there for very long time. The patient has a felon on his right middle finger evident on exam with fluctuance. Related Data Home Medications ?Medication ?Instructions ?Recorded ?Confirmed cholecalciferol (vitamin D3) 125 125 mcg PO DAILY 02/22/23 10/18/24 mcg (5,000 unit) capsule magnesium oxide 500 mg capsule 500 mg PO DAILY 02/22/23 10/18/24 Previous Rx's ?Medication ?Instructions ?Recorded meloxicam 15 mg tablet See Rx Instructions .Route 12/06/23 .COMPLEX #90 tabs apixaban 5 mg tablet (Eliquis) 5 mg PO BID #180 tabs 02/26/24 albuterol sulfate 90 mcg/actuation 2 puff inhalation Q6H PRN 07/22/24 aerosol inhaler shortness of breath or wheezing #8.5 grams guaifenesin 600 mg tablet, 600 mg PO Q12H #20 tabs 07/22/24 extended release 12 hr diltiazem HCl 360 mg capsule,24 See Rx Instructions .Route 08/21/24 hr,extended release .COMPLEX #90 caps cephalexin 500 mg capsule 500 mg PO Q6H 7 days #28 caps 10/18/24 hydrocodone 5 mg-acetaminophen 325 1 tab PO Q6H PRN pain (scale score 10/18/24 mg tablet 7-10) #20 tabs sulfamethoxazole 800 1 tab PO BID 7 days #14 tabs 10/18/24 mg-trimethoprim 160 mg tablet (Bactrim DS) Allergies Allergy/AdvReac Type Severity Reaction Status Date / Time Sthunir-CGV-[id number] Reductase Allergy Hurts Verified 10/18/24 16:31 Inhibitor really bad Review of Systems General: Reports: 10 or more systems reviewed and unremarkable except in HPI and below PFS ED PFSH: Medical History Nondisplaced type II dens fracture Aortic valve sclerosis Bilateral lower extremity edema Carotid stenosis Chronic anticoagulation Chronic atrial fibrillation Chronic venous insufficiency Gout History of skin cancer Hypercholesterolemia Hypertriglyceridemia, essential HTN (hypertension) with goal to be determined Prediabetes Asthma Normal colonoscopy Family History Father Asthma Cancer Heart disease Stroke Mother Asthma Heart disease Varicose veins of calf Social History Smoking and tobacco/nicotine status: never used tobacco/nicotine Quit status (tobacco/nicotine): has quit using Second hand smoke exposure: No Alcohol intake: never Substance/Drug Use: never Supplemental [facility] Information: Right upper extremity examination: I have directly compared the right and left upper arm, elbow and forearm. I do not see any increased swelling in these areas nor any increased erythema. When palpating both sides they feel the same temperature. There is mild swelling circumferentially around the right wrist. He does have passive and active range of motion of the wrist although it is painful. He has some swelling of the right second third and fourth MCPs that is nontender. He has swelling of the right middle finger and a felon at the tip/pulp of his finger. The nailbed is normal. The patient has trouble completely flexing his finger due to the swelling. However he does not have [place] signs and does not have tenderness along the synovial sheaths and tendons. When he forces that he is able to make a full fist. He does not have any signs of tendon rupture. Physical Exam Const: COMMON NORMALS: no limitations, alert and well nourished EXAM LIMITATIONS: no altered mental status HENMT: COMMON NORMALS: normocephalic, atraumatic and external ears normal HEAD & SCALP: normocephalic and atraumatic EXTERNAL EAR: Yes external ears normal MOUTH: no muffled voice Eye: COMMON NORMALS: EOMs intact bilaterally, conjunctivae normal and no scleral icterus CONJUNCTIVA: Yes conjunctivae normal Neck/C-Spine: COMMON NORMALS: no JVD GENERAL: Yes normal visual inspection and Yes trachea midline Resp: COMMON NORMALS: normal respiratory effort and No use of accessory muscles Cardio: COMMON NORMALS: no JVD, regular rate and regular rhythm RATE: regular rate RHYTHM: regular rhythm Neuro: COMMON NORMALS: moves all extremities, no focal motor deficits and no sensory deficits noted SENSORIUM/ORIENTATION: Yes alert SPEECH: speech normal Psych: COMMON NORMALS: mental status grossly normal, Normal thought process present, cooperative, normal affect and speech normal SPEECH: Yes normal speech THOUGHT PROCESS: Normal thought process present Skin: COMMON NORMALS: turgor normal and no jaundice GENERAL SKIN EXAM: turgor normal Procedures Abscess I/D Site: other (right third finger felon) Side (if applicable): right Local Anesthetic: lidocaine 1% Amount of anesthesia used (mL): 5 Technique: incised with #11 blade Amount of fluid expressed (mL): 3 Joint Aspiration/Injection Joint Asp./Inject. 1: Side of body: right Joint Aspirated: wrist/hand Ultrasound Guidance: No Skin Prep: Povidone-Iodine1% (alcohol) Local Anesthetic: lidocaine 1% Amount of anesthesia used (mL): 4 Needle Size Used: 22G Total fluid obtained (mL): 0 Patient Tolerated Procedure: well Complications: none Course Vital Signs: Vital signs: Vital Signs Temperature 98.1 F 10/18/24 16:18 Pulse Rate 61 10/18/24 18:06 Respiratory Rate 22 H 10/18/24 16:18 Blood Pressure 140/73 10/18/24 16:18 Pulse Oximetry 96 10/18/24 18:06 Oxygen Delivery Me thod Room Air 10/18/24 18:06 MDM - Extremity (Nontraumatic) Medical Decision Making 1. Patient has a felon in the right finger. He denies any thorny bushes or anything that would indicate Sporothrix infection. I injected the finger with a digital block and some local anesthetic at the pulp of the finger. An I&D was performed. A cottage cheeselike white discharge came from the finger. There was approximately 3 cc, which is quite a lot for the tip of the finger. This was sent for culture. The finger was bandaged. Swelling of the finger improved fairly quickly after the I&D. 2. Swelling in the MCPs appears to be chronic and unrelated. 3. Given the swelling around the wrist it is unclear whether this is soft tissue edema or whether he has an effusion. Both of them can cause mild impairment of range of motion and pain. I do not feel any warmth or see any specific redness of the wrist. I did attempt to ascertain fluid from the joint. I did enter the joint space successfully but there was no fluid that I could aspirate. Patient's white blood cell count is normal. He is not tachycardic. His ESR and CRP are mildly elevated. Discussed the case with Dr. Perez. Patient would like to go home. We think this is reasonable. I will give him a shot of 2 g of Rocephin and put him on Bactrim tonight. This should get him covered until tomorrow when his pharmacy is open. We will continue with cephalexin and Bactrim and he will follow-up on Monday for repeat examination and follow-up of cultures. Patient is specifically instructed to return if he develops fever, increasing pain, redness, increasing swelling, impaired mobility, or other worsening symptoms. Lab Data 10/18/24 16:49 10/18/24 16:49 Laboratory Results WBC 8.43 10^3/uL (3.29-11.43) 10/18/24 16:49 RBC 4.80 10^6/uL (3.85-5.65) 10/18/24 16:49 Hgb 14.10 g/dL (11.27-16.99) 10/18/24 16:49 Hct 44.8 % (37-53) 10/18/24 16:49 MCV 93.3 fl (82-101) 10/18/24 16:49 MCH 29.4 pg (27-33) 10/18/24 16:49 MCHC 31.5 g/dL (30-55) 10/18/24 16:49 RDW 12.6 % (12.1-15.1) 10/18/24 16:49 Plt Count 288 10^3/cmm (157-399) 10/18/24 16:49 MPV 9.8 fL (7.4-10.4) 10/18/24 16:49 Neut % (Auto) 65.2 % 10/18/24 16:49 Lymph % (Auto) 19.3 % 10/18/24 16:49 Catron % (Auto) 10.3 % 10/18/24 16:49 Eos % (Auto) 4.2 % 10/18/24 16:49 Baso % (Auto) 0.6 % 10/18/24 16:49 Neut # (Auto) 5.50 10^3/uL (1.8-7.7) 10/18/24 16:49 Lymph # (Auto) 1.6 10^3/uL (0.8-4.8) 10/18/24 16:49 Catron # (Auto) 0.9 10^3/uL (0.2-0.9) 10/18/24 16:49 Eos # (Auto) 0.4 10^3/uL (0.0-0.8) 10/18/24 16:49 Baso # (Auto) 0.1 10^3/uL (0.0-0.1) 10/18/24 16:49 Nucleated RBC % (auto) 0 % 10/18/24 16:49 Nucleated RBCs # 0.0 /100WBC 10/18/24 16:49 ESR 22 mm/hr (0-10) H 10/18/24 16:49 Sodium 138 mmol/L (136-145) 10/18/24 16:49 Potassium 4.4 mmol/L (3.5-5.1) 10/18/24 16:49 Chloride 102 mmol/L (98-107) 10/18/24 16:49 Carbon Dioxide 25 mmol/L (22-29) 10/18/24 16:49 Anion Gap 15.4 (5-19) 10/18/24 16:49 BUN 20 mg/dL (8-23) 10/18/24 16:49 Creatinine 0.9 mg/dL (0.7-1.2) 10/18/24 16:49 GFR Calculation Not Reportable 10/18/24 16:49 Glucose 70 mg/dL (65-115) 10/18/24 16:49 Calculated Osmolality 287 mOsm/kg (285-295) 10/18/24 16:49 Lactic Acid 1.5 mmol/L (0.5-2.2) 10/18/24 16:49 Calcium 9.5 mg/dL (8.5-10.5) 10/18/24 16:49 Total Bilirubin 0.3 mg/dL (0.15-1.2) 10/18/24 16:49 AST 15 U/L (0-40) 10/18/24 16:49 ALT 14 U/L (0-41) 10/18/24 16:49 Alkaline Phosphatase 57 U/L (40-130) 10/18/24 16:49 C-Reactive Protein 35.9 mg/L (0.0-4.9) H 10/18/24 16:49 Total Protein 8.0 g/dL (6.6-8.7) 10/18/24 16:49 Albumin 3.9 g/dL (3.5-5.2) 10/18/24 16:49 Globulin 4.1 g/dL (1.3-4.6) 10/18/24 16:49 All radiology interpretation(s) finalized by discharge Discharge Plan Discharge Patient Disposition: Home Clinical Impression: Felon of finger of right hand with lymphangitis Condition: Stable Prescriptions: New cephalexin 500 mg capsule 500 mg PO Q6H 7 Days Qty: 28 0RF sulfamethoxazole-trimethoprim [Bactrim DS] 800-160 mg tablet 1 tab PO BID 7 Days Qty: 14 0RF hydrocodone-acetaminophen 5-325 mg tablet 1 tab PO Q6H PRN (Reason: pain (scale score 7-10)) Qty: 20 0RF No Action albuterol sulfate 90 mcg/actuation HFA aerosol inhaler 2 puff inhalation Q6H PRN (Reason: shortness of breath or wheezing) Qty: 8.5 0RF guaifenesin 600 mg tablet extended release 12hr 600 mg PO Q12H Qty: 20 0RF magnesium oxide 500 mg capsule 500 mg PO DAILY cholecalciferol (vitamin D3) 125 mcg (5,000 unit) capsule 125 mcg PO DAILY Eliquis 5 mg tablet 5 mg PO BID Qty: 180 3RF meloxicam 15 mg tablet See Rx Instructions .ROUTE .COMPLEX Qty: 90 3RF Dose Instruction: TAKE 1 TABLET EVERY DAY Rx Instructions: TAKE 1 TABLET EVERY DAY diltiazem HCl 360 mg capsule,extended release 24 hr See Rx Instructions .ROUTE .COMPLEX Qty: 90 0RF Dose Instruction: TAKE 1 CAPSULE EVERY DAY Rx Instructions: TAKE 1 CAPSULE EVERY DAY Discharge Orders: Discharge ED (Routine); Ordered 10/18/24 Ordered By: Kilo Vazquze Referrals: Will Perez DO [Physician] - 10/21/24 (Mitzy Madrid 3rd finger, MCPs and wrist swollen. cephalexin/bactrim. culture pending) Taras Cohen MD [Primary Care Provider] - 10/25/24 Patient Instructions: Pain Management Activity Restrictions/Additional Instructions: We suspect that the primary pathology was the abscess of your right third finger. The swelling in the metacarpal joints preceded your infection and is probably unrelated. The swelling around the wrist may or may not be related. It is very important to continue to do range of motion of the wrist. If it becomes increasingly stiff or painful, then you need to be seen in the emergency department. We were unable to gain fluid from the joint. Therefore we cannot completely rule out a bacterial infection of the joint. Please follow-up with Dr. Perez on Monday. Your culture of the abscess will be growing on gary dishes and should be available for review on Monday. You are instructed to take Bactrim and cephalexin. This should give you adequate coverage of most pathogens. If you feel that you are getting a fever, having increasing redness, increasing pain, increasing swelling or other urgent concerns then return to the ER for repeat evaluation. Print Language: Prydeinig Coding Level of Care Code ED [employer]ing Machine Tender for Jossie Garcia
[2024-10-18 17:44] LABS: Lactic Sepsis W/Reflex 1.5 mmol/L (0.5-2.2)
[2024-10-18] MEDS: lidocaine 1% 10 ML INJ 20 ML INJECTION (18:05)
--- NOTE | 2024-10-18 18:05 | PC.NURSE ---
Lidocaine handed to Dr. Vazquez.
[2024-10-18 18:06] VITALS: PULSE 61; O2SAT 96
[2024-10-18] MEDS: sulfamethoxazole-trimeth DS 160-800 mg Tablet 1 TAB PO (18:33)
[2024-10-18] MEDS: cefTRIAXone 2,000 MG in water for injection-sterile 2.1 ML 2.1 MG IM (18:34)
[2024-10-18 19:05] VITALS: BP 126/90; PULSE 65; O2SAT 95
== END 2024-10-18 19:05 | disposition home or self-care (01) ==
PROVIDERS: Physician Assistant; Emergency Provider Emergency Medicine; PCP Family Medicine
DX: L03.021 Acute lymphangitis of right finger (principal); Z79.01 Long term (current) use of anticoagulants; Z85.828 Personal history of other malignant neoplasm of skin; I10 Essential (primary) hypertension; M25.431 Effusion, right wrist
CPT/HCPCS: 20605; 26010; 36415; 80053; 83605; 85025; 85651; 86140; 87070; 87075; 87205; 96372; 99284; J0696; J9999

== ENCOUNTER → 2024-10-22 13:51 | Outpatient (BNVA) | payer MEDICARE, SELFPAY | PROVIDERS: PCP Family Medicine; Visit Provider Orthopaedic Surgery | DX: M79.641 Pain in right hand (principal); M25.531 Pain in right wrist | CPT/HCPCS: 73110; 73130; 99203 ==

== ENCOUNTER 2024-10-22 15:16 | Outpatient (CLI) | payer MEDICARE, SELFPAY | END 2024-10-22 15:17 | disposition home or self-care (01) | LOC: SPT 15:17 | PROVIDERS: PCP Family Medicine; Visit Provider Orthopaedic Surgery | DX: Z46.89 Encounter for fitting and adjustment of other specified devices (principal); L03.021 Acute lymphangitis of right finger; M19.90 Unspecified osteoarthritis, unspecified site | CPT/HCPCS: L3908 ==

== ENCOUNTER → 2024-11-07 07:49 | Outpatient (BNVA) | payer MEDICARE, SELFPAY | PROVIDERS: PCP Family Medicine; Visit Provider Orthopaedic Surgery | DX: M79.89 Other specified soft tissue disorders (principal) | CPT/HCPCS: 73130; 99213 ==

== ENCOUNTER → 2024-11-20 10:13 | Outpatient (BNVA) | payer MEDICARE, SELFPAY | PROVIDERS: PCP Family Medicine; Visit Provider Family Medicine | DX: Z00.00 Encounter for general adult medical examination without abnormal findings (principal); R73.03 Prediabetes; N40.0 Benign prostatic hyperplasia without lower urinary tract symptoms; Z12.5 Encounter for screening for malignant neoplasm of prostate; I10 Essential (primary) hypertension | CPT/HCPCS: 80048; 80061; 83036; 84153; 84439; 84443 ==